=== PATIENT | female | born 1935 | race Two or more races ===

== ENCOUNTER 2018-06-08 21:14 | Inpatient (IN) | payer OTHER ==
[~2018-06-08] VITALS: Ht 157.5 cm; Wt 60.9 kg
[2018-06-08 22:42] LABS: Basophils # (auto) 0 uL; Basophils % (auto) 0.2 % (0.0-2.0); Eosinophils # (auto) 0.1 uL; Eosinophils % (auto) 0.6 % (0.0-7.0); Hematocrit 44.4 % (36.0-46.0); Lymphocytes # (auto) 1.9 uL; Lymphocytes % (auto) 11.1 % (10.0-50.0); Mean Corpuscular Hgb Conc. 33.8 g/dL (32.0-36.0); Mean Corpuscular Volume 94.6 fL (80.0-100.0); Monocytes # (auto) 0.9 uL; Monocytes % (auto) 5.6 % (0.0-12.0); Neutrophils # (auto) 13.8 uL; Neutrophils % (auto) 82.5 % (37.0-80.0); Platelet Count (auto) 197 10^3/uL (140-450); Red Blood Cells 4.69 10^6/uL (4.0-5.20); White Blood Cell 16.7 10^3/uL (4.4-10.8)
[2018-06-08] MEDS ORDERED: ONDANSETRON HCL 4 MG/2 ML VIAL IV ONE (22:45)
[2018-06-08] MEDS ORDERED: MORPHINE SULFATE 4 MG/ML SYR/VIAL IV ONE (22:45)
[2018-06-08 23:05] LABS: Albumin 4.1 g/dL (3.4-5.0); BUN/Creatinine Ratio 23.2; Calcium 8.7 mg/dL (8.5-10.1); Potassium 3.7 mmol/L (3.5-5.1)
[2018-06-08 23:08] LABS: Bilirubin, Total 1.7 mg/dL (0.2-1.0); Total Protein 7.7 g/dL (6.4-8.2)
[2018-06-08 23:15] LABS: INR 0.98 (0.9-1.15); Partial Thromboplastin Time 25.9 sec (23.78-33.04); Prothrombin Time 10.5 sec (9.27-12.13)
[2018-06-09] MEDS ORDERED: ceFAZolin 1GM/50ML 100 ML IV ONE (00:15)
[2018-06-09] MEDS: cefTRIAXone 1GM/50ML D5W 50 ML IV SCH ×2 (02:00→03:17)
[2018-06-09] MEDS ORDERED: ONDANSETRON HCL 4 MG/2 ML VIAL IV PRN (02:30)
[2018-06-09] MEDS ORDERED: HYDROcodone-ACET 5/325MG TAB PO PRN (02:30)
[2018-06-09] MEDS ORDERED: TEMAZEPAM 15 MG CAP PO PRN (02:30)
[2018-06-09] MEDS ORDERED: MORPHINE SULFATE 4 MG/ML SYR/VIAL IV PRN (02:30)
[2018-06-09 05:00] VITALS: BP 157/66
[2018-06-09] MEDS ORDERED: SPIR1TAB22 PO (06:40)
[2018-06-09] MEDS ORDERED: CARV12.544 PO (06:40)
[2018-06-09] MEDS ORDERED: TRAM50TA2 PO (06:40)
[2018-06-09] MEDS: glipiZIDE 5 MG TAB PO SCH (08:06)
[2018-06-09] MEDS: CARVEDILOL 12.5 MG TAB PO SCH ×2 (08:07→18:00)
[2018-06-09 08:22] VITALS: BP 130/58
[2018-06-09] MEDS: SPIRONOLACTONE 25 MG TAB PO SCH (09:46)
[2018-06-09] MEDS: FAMOTIDINE 20 MG TAB PO SCH (09:46)
[2018-06-09] MEDS ORDERED: ENOXAPARIN SOD 40 MG/0.4 ML SYRINGE SC SCH (10:00)
[2018-06-09 14:20] VITALS: BP 102/56
[2018-06-09 16:44] VITALS: BP 131/70
[2018-06-09 20:00] VITALS: BP 131/70
[2018-06-09 20:08] LABS: Urine Bacteria FEW /hpf (None Seen); Urine Blood Negative /uL (Negative); Urine Specific Gravity 1.014 (1.001-1.035); Urine WBC 18 /hpf (0 - 5)
[2018-06-09 22:00] VITALS: BP 138/52
[2018-06-10] MEDS: cefTRIAXone 1GM/50ML D5W 50 ML IV SCH (03:04)
[2018-06-10 05:00] VITALS: BP 139/51
[2018-06-10 06:33] LABS: Basophils # (auto) 0 uL; Basophils % (auto) 0.4 % (0.0-2.0); Eosinophils # (auto) 0.2 uL; Eosinophils % (auto) 2.3 % (0.0-7.0); Hematocrit 41.8 % (36.0-46.0); Hemoglobin 14.5 g/dL (12.2-16.2); Lymphocytes # (auto) 2.6 uL; Lymphocytes % (auto) 33.7 % (10.0-50.0); Mean Corpuscular Hemoglobin 32.5 pg (28.0-32.0); Mean Corpuscular Hgb Conc. 34.7 g/dL (32.0-36.0); Mean Corpuscular Volume 93.7 fL (80.0-100.0); Monocytes # (auto) 0.7 uL; Monocytes % (auto) 8.9 % (0.0-12.0); Neutrophils # (auto) 4.2 uL; Neutrophils % (auto) 54.7 % (37.0-80.0); Platelet Count (auto) 180 10^3/uL (140-450); Red Blood Cells 4.46 10^6/uL (4.0-5.20); Red Cell Distribution Width 13.6 % (11.8-14.3); White Blood Cell 7.7 10^3/uL (4.4-10.8)
[2018-06-10 06:56] LABS: Albumin 3.5 g/dL (3.4-5.0); BUN/Creatinine Ratio 18.8; Calcium 8.9 mg/dL (8.5-10.1); Potassium 3.7 mmol/L (3.5-5.1)
[2018-06-10 06:58] LABS: Bilirubin, Total 1.9 mg/dL (0.2-1.0); Total Protein 6.9 g/dL (6.4-8.2)
[2018-06-10] MEDS: CARVEDILOL 12.5 MG TAB PO SCH (08:00)
[2018-06-10] MEDS: glipiZIDE 5 MG TAB PO SCH (08:21)
[2018-06-10 08:55] VITALS: BP 148/71
[2018-06-10] MEDS: FAMOTIDINE 20 MG TAB PO SCH (10:04)
[2018-06-10] MEDS: SPIRONOLACTONE 25 MG TAB PO SCH (10:04)
[2018-06-10] MEDS: InsuLIN REG 1unit/0.01ml Soln (100units/ml) SC SCH ×2 (11:30→21:58)
[2018-06-10] MEDS ORDERED: DEXTROSE (50%) 50ML SYRG IV PRN (11:30)
[2018-06-10] MEDS: ACCU-CHEK COMFORT CURVE STRIP VI SCH ×3 (11:30→21:58)
[2018-06-10] MEDS: ACETAMINOPHEN 325 MG TAB PO PRN ×2 (12:01→20:22)
[2018-06-10 13:05] VITALS: BP 164/73
[2018-06-10] MEDS ORDERED: hydrALAZINE HCL 20 MG/ML VL IV ONE (21:45)
[2018-06-10 22:00] VITALS: BP_SYST 151; BP_SYST 187; BP_DIAS 59; BP_DIAS 85
[2018-06-11 05:00] VITALS: BP 139/58
[2018-06-11 05:48] LABS: Basophils # (auto) 0 uL; Basophils % (auto) 0.5 % (0.0-2.0); Eosinophils # (auto) 0.3 uL; Eosinophils % (auto) 3.6 % (0.0-7.0); Hematocrit 42.2 % (36.0-46.0); Hemoglobin 14.7 g/dL (12.2-16.2); Lymphocytes # (auto) 2.6 uL; Lymphocytes % (auto) 37.2 % (10.0-50.0); Mean Corpuscular Hemoglobin 32.4 pg (28.0-32.0); Mean Corpuscular Hgb Conc. 34.8 g/dL (32.0-36.0); Monocytes # (auto) 0.6 uL; Neutrophils # (auto) 3.5 uL; Neutrophils % (auto) 49.7 % (37.0-80.0); Nucleated Red Blood Cells % 0.2 %; Platelet Count (auto) 192 10^3/uL (140-450); Red Blood Cells 4.53 10^6/uL (4.0-5.20); Red Cell Distribution Width 13.9 % (11.8-14.3); White Blood Cell 7.1 10^3/uL (4.4-10.8)
[2018-06-11 06:08] LABS: Calcium 9.1 mg/dL (8.5-10.1); Potassium 3.6 mmol/L (3.5-5.1)
[2018-06-11 06:14] LABS: Albumin 3.6 g/dL (3.4-5.0); Bilirubin, Total 1.7 mg/dL (0.2-1.0); Total Protein 6.9 g/dL (6.4-8.2)
[2018-06-11] MEDS: ACCU-CHEK COMFORT CURVE STRIP VI SCH ×4 (06:23→21:12)
[2018-06-11] MEDS: InsuLIN REG 1unit/0.01ml Soln (100units/ml) SC SCH ×4 (06:24→21:27)
[2018-06-11 07:50] VITALS: BP 166/79
[2018-06-11] MEDS: CARVEDILOL 12.5 MG TAB PO SCH ×3 (08:00→17:05)
[2018-06-11] MEDS: glipiZIDE 5 MG TAB PO SCH (08:26)
[2018-06-11 09:05] VITALS: BP 166/79
[2018-06-11] MEDS: SPIRONOLACTONE 25 MG TAB PO SCH (09:36)
[2018-06-11] MEDS: FAMOTIDINE 20 MG TAB PO SCH (09:37)
[2018-06-11 13:00] VITALS: BP 125/71
[2018-06-11 16:41] VITALS: BP 120/56
[2018-06-11 21:41] VITALS: BP 112/55
[2018-06-12 05:20] VITALS: BP 139/63
[2018-06-12] MEDS: InsuLIN REG 1unit/0.01ml Soln (100units/ml) SC SCH ×4 (06:22→21:38)
[2018-06-12] MEDS: ACCU-CHEK COMFORT CURVE STRIP VI SCH ×4 (06:22→21:38)
[2018-06-12 08:00] VITALS: BP 153/56
[2018-06-12] MEDS: CARVEDILOL 12.5 MG TAB PO SCH ×2 (08:00→17:34)
[2018-06-12] MEDS: glipiZIDE 5 MG TAB PO SCH (08:24)
[2018-06-12 09:00] VITALS: BP 153/56
[2018-06-12] MEDS: FAMOTIDINE 20 MG TAB PO SCH (09:08)
[2018-06-12] MEDS: SPIRONOLACTONE 25 MG TAB PO SCH (09:09)
[2018-06-12 13:00] VITALS: BP 146/70
[2018-06-12 17:00] VITALS: BP 151/75
[2018-06-12 22:29] VITALS: BP 144/63
[2018-06-13 05:29] VITALS: BP 143/78
[2018-06-13] MEDS: InsuLIN REG 1unit/0.01ml Soln (100units/ml) SC SCH ×2 (06:27→11:46)
[2018-06-13] MEDS: ACCU-CHEK COMFORT CURVE STRIP VI SCH ×2 (06:27→11:26)
[2018-06-13 08:00] VITALS: BP 156/75
[2018-06-13] MEDS: glipiZIDE 5 MG TAB PO SCH (08:00)
[2018-06-13] MEDS: CARVEDILOL 12.5 MG TAB PO SCH (08:01)
[2018-06-13 09:00] VITALS: BP_SYST 119; BP_SYST 156; BP_DIAS 75; BP_DIAS 79
[2018-06-13] MEDS: FAMOTIDINE 20 MG TAB PO SCH (09:59)
[2018-06-13] MEDS: SPIRONOLACTONE 25 MG TAB PO SCH (09:59)
[2018-06-13 13:00] VITALS: BP 147/65
[2018-06-13 14:33] VITALS: BP 127/61
== END 2018-06-13 16:50 | DRG 565 ==
LOC: ER 21:14 → OVERFLOW 06-09 03:11 → CENTRAL 06-09 04:39
PROVIDERS: ADMIT Nurse Practitioner; ATTEND Family Medicine
DX: S02.82XA Fracture of other specified skull and facial bones, left side, initial encounter for closed fracture (principal); T79.7XXA Traumatic subcutaneous emphysema, initial encounter; S02.401A Maxillary fracture, unspecified side, initial encounter for closed fracture; S02.81XA Fracture of other specified skull and facial bones, right side, initial encounter for closed fracture; E11.9 Type 2 diabetes mellitus without complications; I10 Essential (primary) hypertension; D72.829 Elevated white blood cell count, unspecified; F32.9 Major depressive disorder, single episode, unspecified; H05.20 Unspecified exophthalmos; M48.02 Spinal stenosis, cervical region; S16.1XXA Strain of muscle, fascia and tendon at neck level, initial encounter; W01.0XXA Fall on same level from slipping, tripping and stumbling without subsequent striking against object, initial encounter; Y93.01 Activity, walking, marching and hiking; Y92.89 Other specified places as the place of occurrence of the external cause; Y99.8 Other external cause status; Z79.899 Other long term (current) drug therapy
CPT/HCPCS: 36415; 70450; 70486; 72125; 80053; 81001; 82962; 83036; 85025; 85610; 85730; 87040; 93005; 96374; 96375; 97116; 97530; G0378; J0690; J0696; J1815; J2405